=== PATIENT | female | born 2000 | race African-American/Black ===

== ENCOUNTER 2023-05-17 23:29 | Emergency (ER) | payer OTHER, BC, SELFPAY ==
--- NOTE | ~2023-05-17 | XR_ITS ---
EXAMINATION: XR lumbar spine 2-3V DATE: 05/18/2023 00:54 INDICATION: Low back pain TECHNIQUE: Anteroposterior and lateral views of the lumbar spine, and cone-down lateral view of the l umbosacral junction were obtained. COMPARISON: None. FINDINGS: No fracture, dislocation, or subluxation. The vertebral body heights, alignment, and interv ertebral disc spaces are normal. The paravertebral soft tissues are unremarkable. IMPRESSION: 1. No acute osseous abnormality. Reviewed, dictated and finalized at location A.
--- NOTE | ~2023-05-17 | XR_ITS ---
EXAMINATION: XR thoracic spine 3V DATE: 05/18/2023 00:54 INDICATION: Back pain TECHNIQUE: AP, lateral and lateral swimmer's views of the thoracic spine were obtained. COMPARISON: None. FINDINGS: No fracture, dislocation, or subluxation. The vertebral body heights, alignment, and interv ertebral disc spaces are normal. The paravertebral soft tissues are unremarkable. IMPRESSION: 1. No acute osseous abnormality. Reviewed, dictated and finalized at location A.
--- NOTE | ~2023-05-17 | XR_ITS ---
EXAMINATION:XR_CERV2-3V_CR DATE: 05/18/2023 00:54 INDICATION: Neck pain TECHNIQUE: AP, lateral, and odontoid views of the cervical spine are provided. COMPARISON: None FINDINGS: There is straightening of the cervical spine which can be positional or due to muscular spa sm. Alignment is normal. The odontoid process is intact. No fracture is identified. Vertebral body he ights and disk spaces are normal. Prevertebral soft tissues are normal. IMPRESSION: 1. No acute osseous abnormality. Reviewed, dictated and finalized at location A.
[2023-05-17 23:39] VITALS: BP 124/84; PULSE 77; RESP 16; TEMP 36.6; O2SAT 100
[2023-05-18 03:11] VITALS: BP 134/81; PULSE 62; RESP 15; O2SAT 100
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
[2023-05-18] MEDS: methocarbamoL 750 MG TABLET 1500 MG PO (05:10)
[2023-05-18] MEDS: IBUPROFEN 400 MG TABLET 800 MG PO (05:11)
[2023-05-18] MEDS: ACETAMINOPHEN 500 MG TABLET 1000 MG PO (05:11)
== END 2023-05-18 05:22 | disposition home or self-care (01) ==
PROVIDERS: Emergency Provider Emergency Medicine
DX: S13.4XXA Sprain of ligaments of cervical spine, initial encounter (principal); V43.62XA Car passenger injured in collision with other type car in traffic accident, initial encounter
CPT/HCPCS: 72040; 72072; 72100; 99284; A9270